=== PATIENT | female | born 1990 | race Caucasian/White ===

== ENCOUNTER 2016-04-22 14:32 | Emergency (ER) | payer OTHER ==
--- NOTE | 2016-04-22 15:35 | PD ---
HPI Chief Complaint Bilateral pedal edema Date Seen: Apr 22, 2016 Time Seen: 15:30 Travel History International Travel<30 Days: No Contact w/Intl Traveler<30Days: No Known Affected Area: No History of Present Illness HPI 26-year-old white female who is at 34 weeks gestation presents with bilateral pedal edema since this morning. Denies leg pain or calf pain. She has had 1 previous with an ectopic. Denies visual changes blurring. Para: 0 : 2 History Past Medical History Medical History: Denies Significant Hx Past Surgical History Narrative Surgical Left salpingectomy from ectopic Family History Family History: Negative Social History Alcohol Use: No Tobacco Use: No Substance Abuse: No Review of Systems Except as stated in HPI: all other systems reviewed are Neg Physical Exam Blood pressure 116/72 Respirations 16 Pulse 72 Narrative GENERAL: Well-nourished, well-developed patient. SKIN: Warm and dry. HEAD: Normocephalic and atraumatic. EYES: No scleral icterus. No injection or drainage. ENT: No nasal drainage noted. Mucous membranes pink. Airway patent. NECK: Supple, trachea midline. No JVD. CARDIOVASCULAR: Regular rate and rhythm without murmurs, gallops, or rubs. RESPIRATORY: Breath sounds equal bilaterally. No accessory muscle use. BREASTS: Bilateral exam showed no masses , no retractions, no nipple discharge. ABDOMEN/GI: Abdomen soft, non-tender, bowel sounds present, no rebound, no guarding Gravid to [-34] weeks size Fundal Height: [-] GENITOURINARY: External Genitalia: intact and normal in appearance BUS glands: [Normal-] Cervix: - Dilatation: [-] Effacement: [-] Station: [-] Presentation: [-] Membranes: [intact or ruptured] Uterine Contractions: [None-] FHT's: Category: [1-] Baseline: 140 Reactive: Reactive Variability: Moderate Decels: Absent EXTREMITIES: 2+ bilateral lower extremity edema. No Homans sign BACK: Nontender without obvious deformity. No CVA tenderness. NEUROLOGICAL: Awake and alert. Motor and sensory grossly within normal limits. Five out of 5 muscle strength in all muscle groups. Normal speech. Data Data Vital Signs Reviewed: Yes MDM Plan Recommend lower extremity elevation. Consider compression hose. Follow-up with primary OB as scheduled Diagnosis Diagnosis: Primary Impression: Edema during in third trimester Additional Impression: 34 weeks gestation of Disposition: 01 DISCHARGE HOME Ange Villatoro MD Apr 22, 2016 15:35
== END 2016-04-22 15:52 | disposition home or self-care (01) ==
LOC: HOBED 14:32
DX: O12.03 Gestational edema, third trimester (principal); Z3A.34 34 weeks gestation of pregnancy
CPT/HCPCS: 99284

== ENCOUNTER 2016-05-31 18:01 | Inpatient (IN) | payer OTHER ==
[~2016-05-31] VITALS: Ht 175.3 cm; Wt 108.9 kg
[2016-05-31 18:30] VITALS: RESP 18; TEMP 98.6
--- NOTE | 2016-05-31 18:44 | HHI.HP ---
HPI Chief Complaint scheduled induction, past due Date Seen: May 31, 2016 Time Seen: 18:30 Travel History International Travel<30 Days: No Contact w/Intl Traveler<30Days: No Known Affected Area: No History of Present Illness HPI 26 yo with EDC 05/30/16 admit for scheduled labor induction due to past due. Pt c/o pelvic pressure but denies regular contractions, LOF, or VB. Good movement. has been uncomplicated, seeing me since 7 weeks with 13 total visits. Sono confirmed dates at 8 weeks. Pain 1/10 mild cramping low pelvis. Para: 0 : 2 Last Menstrual Period: Aug 24, 2015 Miscarriage: 0 (L ectopic 04/2015) : 0 History Past Medical History Medical History: Denies Significant Hx Obstetric History Obstetric History G1 = L ruptured ectopic s/p L salpingectomy (laparoscopic) at [facility] 04/2015 G2 = current, male, EDC 05/30/16 Past Surgical History Narrative Surgical laparoscopic left salpingectomy for ruptured ectopic 04/2015 Family History Family History: Negative Social History Alcohol Use: No Tobacco Use: No Substance Abuse: No Allergies-Medications (Allergen,Severity, Reaction): Coded Allergies: No Known Allergies (Unverified , 05/31/16) Review of Systems General / Constitutional: Weight Gain, No: Fever, Chills, Other Eyes: No: Diploplia, Blurred Vision, Visual changes, Pain, Photophobia HENT: No: Headaches, Vertigo, Lightheadedness Cardiovascular: No: Irregular Rhythm, Chest Pain or Discomfort, Palpitations, Tachycardia, Syncope, Varicosities, Edema, Cyanosis Respiratory: No: Cough, Short of Breath, Other Gastrointestinal: No: Nausea, Vomiting, Diarrhea Genitourinary: Pelvic Pain (pressure), No: Decreased Urinary Output, Oliguria Musculoskeletal: No: Limited ROM, Weakness, Cramping, Edema, Pain Skin: No Rash, No Itching, No Dryness, No Lumps, No Change in Pigmentation, No Change in Nails, No Alopecia, No Lesions Neurologic: No: Weakness, Dizziness, Syncope, Focal Abnormalities, Coordination Problem, Headache, Slurred Speech, Seizures Psychiatric: No: Depression, Suicidal Ideations, Homicidal Ideation Endocrine: No: Heat Intolerance, Cold Intolerance, Polydipsia, Polyuria, Other Physical Exam Narrative GENERAL: Well-nourished, well-developed patient. Puffy. SKIN: Warm and dry. HEAD: Normocephalic and atraumatic. EYES: No scleral icterus. No injection or drainage. ENT: No nasal drainage noted. Mucous membranes pink. Airway patent. NECK: Supple, trachea midline. No JVD. CARDIOVASCULAR: Regular rate and rhythm without murmurs, gallops, or rubs. RESPIRATORY: Breath sounds equal bilaterally. No accessory muscle use. BREASTS: deferred. ABDOMEN/GI: Abdomen soft, non-tender, bowel sounds present, no rebound, no guarding Gravid to [40] weeks size Fundal Height: [40] GENITOURINARY: SVE: /-3 Presentation: [vtx] Membranes: [intact] Uterine Contractions: [irritability] FHT's: Category: [I] Baseline: [130s] Decels: [n] EXTREMITIES: No cyanosis; +2 edema to ankles bilaterally. BACK: Nontender without obvious deformity. No CVA tenderness. NEUROLOGICAL: Awake and alert. Motor and sensory grossly within normal limits. Five out of 5 muscle strength in all muscle groups. Normal speech. Data Data Vital Signs Reviewed: Yes Assessment/Plan Problem List: (1) Labor and delivery indication for care or intervention (2) 40 weeks gestation of Assessment and Plan 26 yo at 40w1d admit for labor induction 1) IOL: r/b/a including risk of failure & risk of reviewed w/ pt, AQA, pt consents; will plan cervidil overnight then AROM/pitocin as needed 2) GBS neg 3) h/o L ruptured ectopic and salpingectomy 04/2015 - aware 4) Varicella non-immune: for PP eval 5) status: male, vertex, EFW 8.5# or more; both pt & were >9# at Discharge Planning routine for 2-3d Cristin Jama MD May 31, 2016 18:44
[2016-05-31] MEDS ORDERED: LIDOCAINE HCL 1% 50 ML VIAL I-DERMAL PRN (19:00)
[2016-05-31] MEDS ORDERED: LIDOCAINE HCL 1% 50 ML VIAL INFIL PRN (19:00)
[2016-05-31] MEDS ORDERED: LACTATED RINGER'S 1000 ML BOLUS IV PRN (19:00)
[2016-05-31] MEDS ORDERED: MINERAL OIL 10 ML VIAL TOPICAL PRN (19:00)
[2016-05-31] MEDS ORDERED: CITRIC ACID-SODIUM CITRATE LIQ 30 ML UDC PO SCH (19:00)
[2016-05-31] MEDS ORDERED: OXYTOCIN 30 UNITS 500ML PREMIX IV ONE (19:00)
[2016-05-31] MEDS ORDERED: ONDANSETRON HCL 4 MG/2 ML VIAL IV PRN (19:00)
[2016-05-31] MEDS ORDERED: SODIUM CHLORIDE FLUSH PRN IV FLUSH (19:00)
[2016-05-31] MEDS ORDERED: NS 500 ML BOLUS IV PRN (19:00)
[2016-05-31] MEDS ORDERED: NS 1000 ML OTHER PRN (19:00)
[2016-05-31] MEDS ORDERED: ZOLPIDEM TARTRATE 5 MG TAB PO PRN (19:00)
[2016-05-31] MEDS ORDERED: DINOPROSTONE 10 MG INSERT-LEAVE FOR 12 HOURS VAGINAL ONE (19:00)
[2016-05-31] MEDS ORDERED: NS 1000 ML IV PRN (19:00)
[2016-05-31] MEDS ORDERED: diphenhydrAMINE HCL 25 MG CAP PO PRN (19:00)
[2016-05-31 19:01] VITALS: BP 124/83; PULSE 90
[2016-05-31 19:15] VITALS: RESP 18
[2016-05-31 19:20] LABS: AUTOMATED NEUTROPHIL # 10.3 TH/MM3 (1.8-7.7); BASOPHIL % 0.3 % (0.0-2.0); EOSINOPHIL # 0.1 TH/MM3 (0-0.4); EOSINOPHIL % 0.7 % (0.0-4.0); HEMATOCRIT 37.4 % (35.0-46.0); HEMO FLAGS DIFF FINAL; LYMPH % 12.7 % (9.0-44.0); LYMPHOCYTE # 1.6 TH/MM3 (1.0-4.8); MEAN CELL VOLUME 83.9 FL (80.0-100.0); MEAN CORPUSCULAR HEMOGLOBIN 29.6 PG (27.0-34.0); MEAN CORPUSCULAR HGB CONC 35.3 % (32.0-36.0); MONO % 4.6 % (0.0-8.0); NEUT % 81.7 % (16.0-70.0); PLATELET COUNT 372 TH/MM3 (150-450); RED BLOOD COUNT 4.46 MIL/MM3 (4.00-5.30); RED CELL DISTRIBUTION WIDTH 14.4 % (11.6-17.2); WHITE BLOOD COUNT 12.6 TH/MM3 (4.0-11.0)
[2016-05-31 19:28] LABS: BACTERIA, URINE FEW /hpf; BLOOD, URINE NEG (NEG); COMMENT (UR) CULT NOT INDICATED; CULTURE IF INDICATED CULT NOT INDICATED; GLUCOSE,URINE NEG (NEG); KETONE, URINE 10 mg/dL (NEG); MUCUS URINE FEW /lpf (OCC); NITRITE,URINE NEG (NEG); SQUAMOUS EPITHELIAL CELL URINE 7 /hpf (0-5); URINE COLOR YELLOW (YELLW/STRAW)
[2016-05-31] MEDS: SODIUM CHLORIDE FLUSH BID IV FLUSH SCH (21:00)
[2016-05-31 23:45] VITALS: BP 126/79; PULSE 71
[2016-05-31 23:49] VITALS: RESP 18; TEMP 97.8
[2016-06-01] VITALS (46 sets, daily range): BP systolic 96–138; BP diastolic 53–97; PULSE 65–98; RESP 16–18; TEMP 97.7–98.1
--- NOTE | 2016-06-01 08:21 | PD.LABORPN ---
Subjective Subjective feeling mild irritability, no true contractions; comfortable, discomfort 2/10 Objective Vital Signs Vital Signs Date Time Temp Pulse Resp B/P Pulse Ox O2 Delivery O2 Flow Rate FiO2 06/01/16 07:59 94 129/80 06/01/16 07:58 88 129/93 06/01/16 07:57 98.1 18 06/01/16 07:30 18 06/01/16 07:16 97 116/74 06/01/16 03:16 97.9 18 06/01/16 03:15 71 135/89 Objective Pelvic Exam: Cervix: [mid] Dilatation: [2] Effacement: [70] Station: [-2] Presentation: [vtx] Membranes: [intact] Uterine Contractions: [mild irritability] FHT's: Category: [I] Baseline: [130s] Reactive: [y] Variability: [y] Decels: [n] Assessment/Plan Problem List: (1) Labor and delivery indication for care or intervention (2) 40 weeks gestation of Assessment and Plan 26 yo with IUP 40w2d admit for term IOL 1) IOL: s/p cervidil overnight, mild irritability on toco; shower & eat breakfast, based on contraction pattern after will plan cytotec PV or pitocin; Cat I tracing currently 2) GBS neg 3) status: male, vertex, Cat I tracing; suspect macrosomia Cristin Jama MD Jun 01, 2016 08:21
[2016-06-01] MEDS ORDERED: MISOPROSTOL 25 MCG SUPP VAGINAL ONE (08:30)
[2016-06-01] MEDS: SODIUM CHLORIDE FLUSH BID IV FLUSH SCH (09:00)
[2016-06-01] MEDS: LACTATED RINGER'S 1000 ML IV SCH ×2 (11:05→18:40)
[2016-06-01] MEDS ORDERED: OXYTOCIN 30 UNITS/NS 500ML PREMIX IV SCH (12:00)
--- NOTE | 2016-06-01 16:30 | PD.LABORPN ---
Subjective Subjective feeling slight increase in contraction pressure but still mild 2/10 Objective Vital Signs Vital Signs Date Time Temp Pulse Resp B/P Pulse Ox O2 Delivery O2 Flow Rate FiO2 06/01/16 15:58 85 123/83 06/01/16 15:58 16 06/01/16 15:14 81 128/89 06/01/16 15:13 82 134/97 06/01/16 15:11 97.9 18 06/01/16 13:36 83 122/81 06/01/16 13:35 18 06/01/16 13:15 18 06/01/16 12:39 81 16 132/86 06/01/16 11:56 80 115/81 06/01/16 11:56 16 06/01/16 10:12 97.7 16 06/01/16 10:10 88 127/75 Objective Pelvic Exam: Cervix: [mid] Dilatation: [3] Effacement: [70] Station: [-2] Presentation: [vtx] Membranes: [AROM'd clear this check] Uterine Contractions: [q2-3 min with pitocin at 3 jackie-units/min] FHT's: Category: [I] Baseline: [130s] Reactive: [y] Variability: [y] Decels: [n] Assessment/Plan Problem List: (1) Labor and delivery indication for care or intervention (2) 40 weeks gestation of Assessment and Plan 26 yo with IUP at 40w2d admit for post due labor induction 1) IOL: s/p cervidil overnight, pt lorenzo frequently but minimal cervical change from 1/70/-3 > 3/70/-2; able to AROM this check, clear fluid, IUPC placed , continue active mgmt 2) GBS neg 3) status: vtx, male, suspect macrosomia, EFW 9+ # Cristin Jama MD Jun 01, 2016 16:30
[2016-06-01] MEDS ORDERED: fentaNYL 2MCG-BUPIV 0.125% INJ 100 ML ONE (19:21)
[2016-06-01] MEDS ORDERED: NO SYSTEM NARCOTICS PRN (20:45)
[2016-06-01] MEDS ORDERED: ePHEDrine/NS 25 MG/5 ML SYR IV PRN (20:45)
[2016-06-01] MEDS ORDERED: DO NOT ADMINISTER ANTICOAGULANTS PRN (20:45)
[2016-06-01] MEDS ORDERED: fentaNYL 2MCG-BUPIV 0.125% 100 ML EPIDURAL SCH (20:45)
[2016-06-02] VITALS (9 sets, daily range): BP systolic 108–124; BP diastolic 64–96; PULSE 77–95; RESP 16–18; TEMP 97.5–98.4
--- NOTE | 2016-06-02 00:43 | PD.OB.DELI ---
Delivery Date: Jun 02, 2016 Anesthesia: Epidural Episiotomy: Midline Vaginal Delivery: Vacuum Presentation: Occiput anterior Nuchal Cord: None Delayed cord clamping (45 sec): Yes : Male, Single One Minute : 8 Five Minute : 9 Weight: 8#9oz Infant Care: Spontaneous crying, Responded to stimulation, Other (see nursery notes) Placenta: Spontaneous delivery, Intact, 3 vessel cord Laceration: Episiotomy (midline 2nd degree) Repair: Chromic running Additional Information EBL 200 mL poor maternal pushing effort/exhaustion after approximately 1.5 hours of pushing , vacuum applied at +2 station with 2 pulls, no pop offs, successful delivery Cristin Jama MD Jun 02, 2016 00:42
[2016-06-02] MEDS ORDERED: PERI8.6T PO (00:44)
[2016-06-02] MEDS ORDERED: IBUP-232 PO (00:44)
[2016-06-02] MEDS ORDERED: BENZOCAINE 20% TOPICAL SPRAY 60 ML CAN TOPICAL PRN (00:45)
[2016-06-02] MEDS ORDERED: SODIUM CHLORIDE 0.9% FLUSH 10 ML FLUSH IV FLUSH PRN (00:45)
[2016-06-02] MEDS ORDERED: ALUMINUM/MAGNESIUM/SIMETH 30 ML CUP PO PRN (00:45)
[2016-06-02] MEDS ORDERED: ZOLPIDEM TARTRATE 5 MG TAB PO PRN (00:45)
[2016-06-02] MEDS ORDERED: WITCH HAZEL 50%/GLYCERIN 12.5% 40 PAD JAR TOPICAL PRN (00:45)
[2016-06-02] MEDS ORDERED: oxyCODONE/ACETAMINOPHEN 5 MG/325 MG TAB PO PRN ×2 (00:45)
[2016-06-02] MEDS ORDERED: ONDANSETRON ODT 4 MG TAB PO PRN (00:45)
[2016-06-02] MEDS ORDERED: ACETAMINOPHEN 325 MG TAB PO PRN (00:45)
--- NOTE | 2016-06-02 00:45 | HHI.DCPOC ---
Discharge Care Plan Diagnosis: (1) (spontaneous vaginal delivery) Your Health Problems Are: Vaginal delivery Report Symptoms to Your Doctor -Temperate above 100.5 degrees -Redness, of incision or excessive or foul smelling drainage -Unusual pain or calf pain -Increased vaginal bleeding -Painful or difficulty urinating -Feelings of extreme sadness or anxiety after 2 weeks Goals to Promote Your Health * To prevent worsening of your condition and complications * To maintain your health at the optimal level Directions to Meet Your Goals Take your medications as prescribed Follow your dietary instruction Follow activity as directed Ensure plenty of rest for recovery Drink fluids for hydration Keep your appointments as scheduled Take your immunizations and boosters as scheduled If your symptoms worsen call your PCP, if no PCP go to Urgent Care Center or Emergency Room Smoking is Dangerous to Your Health. Avoid second hand smoke Call the 24-hour crisis hotline for domestic abuse at Cristin Jama MD Jun 02, 2016 00:45
[2016-06-02] MEDS: DOCUSATE SODIUM 50 MG/SENNA 8.6 MG TAB PO PRN (06:59)
[2016-06-02] MEDS: IBUPROFEN 600 MG TAB PO PRN ×2 (07:00→14:37)
--- NOTE | 2016-06-02 08:36 | HHI.OB ---
Subjective Post Operative Day: 0 Remarks doing well Objective Vitals/I&O Vital Signs Date Time Temp Pulse Resp B/P Pulse Ox O2 Delivery O2 Flow Rate FiO2 06/02/16 07:16 97.5 89 18 120/72 06/02/16 02:00 87 108/74 06/02/16 02:00 16 06/02/16 02:00 97.8 06/02/16 01:45 77 16 124/96 06/02/16 01:30 84 116/68 06/02/16 01:30 16 06/02/16 01:15 18 06/02/16 01:15 82 110/64 06/02/16 01:01 123/74 06/02/16 01:01 95 06/02/16 00:50 90 114/74 06/02/16 00:48 98.0 18 06/01/16 23:45 77 120/69 06/01/16 23:01 72 138/70 06/01/16 22:45 77 06/01/16 22:45 16 06/01/16 22:45 128/84 06/01/16 22:30 74 111/57 06/01/16 22:15 65 106/61 06/01/16 22:00 16 06/01/16 22:00 68 119/77 06/01/16 21:45 69 109/76 06/01/16 21:30 66 110/63 06/01/16 21:15 66 111/61 06/01/16 21:00 98.0 06/01/16 21:00 16 06/01/16 21:00 71 96/57 06/01/16 20:45 72 96/53 06/01/16 20:30 98 117/76 06/01/16 20:26 16 06/01/16 20:15 96 123/85 06/01/16 20:00 104/89 06/01/16 20:00 89 06/01/16 19:55 94 06/01/16 19:45 120/74 06/01/16 19:44 85 16 127/69 06/01/16 19:40 97 130/84 06/01/16 19:30 91 134/94 06/01/16 19:25 117/78 06/01/16 19:25 89 06/01/16 19:11 81 117/89 06/01/16 19:07 97.9 16 06/01/16 19:00 91 134/91 06/01/16 18:39 16 06/01/16 18:35 73 134/73 06/01/16 16:59 80 135/78 06/01/16 16:58 16 06/01/16 15:58 85 123/83 06/01/16 15:58 16 06/01/16 15:14 81 128/89 06/01/16 15:13 82 134/97 06/01/16 15:11 97.9 18 06/01/16 13:36 83 122/81 06/01/16 13:35 18 06/01/16 13:15 18 06/01/16 12:39 81 16 132/86 06/01/16 11:56 80 115/81 06/01/16 11:56 16 06/01/16 10:12 97.7 16 06/01/16 10:10 88 127/75 Result Diagram: 05/31/161829 Objective Remarks GENERAL: Well-nourished, well-developed patient. CARDIOVASCULAR: Regular rate and rhythm without murmurs, gallops, or rubs. RESPIRATORY: Breath sounds equal bilaterally. No accessory muscle use. ABDOMEN/GI: Abdomen soft, non-tender, bowel sounds present. Incision: Clean, dry and intact. Fundus: Firm, non-tender at umbilicus. GENITOURINARY: Light to moderate bleeding. EXTREMITIES: No cyanosis or edema, non-tender, without signs of DVT. Medications and IVs Current Medications Medications (Trade) Dose Ordered Sig/[facility] Route Start Time Stop Time Status Last Admin (Muri-Lube Oil) 10 ml UNSCH PRN TOPICAL 05/31/16 19:00 (NS Flush) 2 ml BID IV FLUSH 06/02/16 00:45 (NS Flush) 2 ml UNSCH PRN IV FLUSH 06/02/16 00:45 (Tylenol) 650 mg Q4H PRN PO 06/02/16 00:45 (Motrin) 600 mg Q6H PRN PO 06/02/16 00:45 06/02/16 07:00 (Percocet 5-325 Mg) 1 tab Q4H PRN PO 06/02/16 00:45 (Percocet 5-325 Mg) 2 tab Q4H PRN PO 06/02/16 00:45 (Americaine 20% Top Spr) 1 spray Q4H PRN TOPICAL 06/02/16 00:45 06/02/16 06:59 (Tucks Pads) 1 applic QID PRN TOPICAL 06/02/16 00:45 06/02/16 06:59 (Margaret-Colace) 2 tab Q12H PRN PO 06/02/16 00:45 06/02/16 06:59 (Ambien) 5 mg HS PRN PO 06/02/16 00:45 (M-M-R Ii Inj) 0.5 ml ONCE ONCE SQ 06/02/16 16:00 06/02/16 16:01 (Boostrix Inj) 0.5 ml ONCE ONCE IM 06/02/16 16:00 06/02/16 16:01 (Mag-Al Plus Susp Liq) 15 ml Q8H PRN PO 06/02/16 00:45 (Zofran Odt) 4 mg Q6H PRN PO 06/02/16 00:45 Assessment/Plan Problem List: (1) Labor and delivery indication for care or intervention (2) 40 weeks gestation of Assessment and Plan 26 yo at 40w1d admit for labor induction 1) IOL: r/b/a including risk of failure & risk of reviewed w/ pt, AQA, pt consents; will plan cervidil overnight then AROM/pitocin as needed 2) GBS neg 3) h/o L ruptured ectopic and salpingectomy 04/2015 - aware 4) Varicella non-immune: for PP eval 5) status: male, vertex, EFW 8.5# or more; both pt & were >9# at Discharge Planning routine for 2-3d Evette Otoole MD Jun 02, 2016 08:36
[2016-06-02] MEDS: SODIUM CHLORIDE 0.9% FLUSH 10 ML FLUSH IV FLUSH SCH (08:54)
[2016-06-02] MEDS ORDERED: DIPHTH/TETANUS/ACEL PERTUSSIS (BOOSTER) 0.5 ML VIAL/PFS IM ONE (16:00)
[2016-06-02] MEDS ORDERED: MEASLES, MUMPS, RUBELLA VACCINE 0.5 ML VIAL SQ ONE (16:00)
[2016-06-03] MEDS: DOCUSATE SODIUM 50 MG/SENNA 8.6 MG TAB PO PRN (03:13)
[2016-06-03] MEDS: IBUPROFEN 600 MG TAB PO PRN ×2 (03:13→12:51)
[2016-06-03] MEDS: SODIUM CHLORIDE 0.9% FLUSH 10 ML FLUSH IV FLUSH SCH (03:33)
[2016-06-03 09:35] VITALS: BP 112/72; PULSE 70; RESP 18; TEMP 97.9
--- NOTE | 2016-06-03 12:05 | HHI.OB ---
Subjective Post Day: 1 Remarks PPD#1, Doing well, male with mild resp. issues Objective Vitals/I&O Vital Signs Date Time Temp Pulse Resp B/P Pulse Ox O2 Delivery O2 Flow Rate FiO2 06/03/16 09:35 97.9 06/03/16 09:35 70 18 112/72 06/03/16 04:13 18 06/03/16 04:13 18 06/02/16 20:50 119/82 06/02/16 20:50 98.4 83 18 Objective Remarks GENERAL: Well-nourished, well-developed patient. CARDIOVASCULAR: Regular rate and rhythm without murmurs, gallops, or rubs. RESPIRATORY: Breath sounds equal bilaterally. No accessory muscle use. ABDOMEN/GI: Abdomen soft, non-tender. Fundus: Firm, non-tender at umbilicus. GENITOURINARY: Light to moderate bleeding. EXTREMITIES: No cyanosis or edema, non-tender, without signs of DVT. Medications and IVs Current Medications Medications (Trade) Dose Ordered Sig/[facility]arad Route Start Time Stop Time Status Last Admin (Muri-Lube Oil) 10 ml UNSCH PRN TOPICAL 05/31/16 19:00 (NS Flush) 2 ml BID IV FLUSH 06/02/16 00:45 (NS Flush) 2 ml UNSCH PRN IV FLUSH 06/02/16 00:45 (Tylenol) 650 mg Q4H PRN PO 06/02/16 00:45 (Motrin) 600 mg Q6H PRN PO 06/02/16 00:45 06/03/16 03:13 (Percocet 5-325 Mg) 1 tab Q4H PRN PO 06/02/16 00:45 06/03/16 03:13 (Percocet 5-325 Mg) 2 tab Q4H PRN PO 06/02/16 00:45 (Americaine 20% Top Spr) 1 spray Q4H PRN TOPICAL 06/02/16 00:45 06/02/16 06:59 (Tucks Pads) 1 applic QID PRN TOPICAL 06/02/16 00:45 06/02/16 06:59 (Margaret-Colace) 2 tab Q12H PRN PO 06/02/16 00:45 06/03/16 03:13 (Ambien) 5 mg HS PRN PO 06/02/16 00:45 (Mag-Al Plus Susp Liq) 15 ml Q8H PRN PO 06/02/16 00:45 (Zofran Odt) 4 mg Q6H PRN PO 06/02/16 00:45 Assessment/Plan Problem List: (1) Labor and delivery indication for care or intervention (2) 40 weeks gestation of Assessment and Plan PPD#1, stable,infant stable but may go to NICU if respiratory issues dont resolve. Discharge Planning routine for Attending Attestation seen by Johan Fleming MD Jun 03, 2016 12:05
[2016-06-03 20:30] VITALS: BP 148/94; PULSE 84; RESP 17; TEMP 98.2
[2016-06-04] MEDS: IBUPROFEN 600 MG TAB PO PRN (02:36)
[2016-06-04 08:00] VITALS: BP 123/83; PULSE 80; RESP 18; TEMP 98.6
--- NOTE | 2016-06-04 08:35 | HHI.OB ---
Subjective Post Day: 2 Remarks no complaints, baby still not cleared by peds for discharge Objective Vitals/I&O Vital Signs Date Time Temp Pulse Resp B/P Pulse Ox O2 Delivery O2 Flow Rate FiO2 06/04/16 08:00 98.6 80 18 123/83 06/03/16 20:30 148/94 06/03/16 20:30 98.2 84 17 06/03/16 09:35 97.9 06/03/16 09:35 70 18 112/72 Objective Remarks GENERAL: Well-nourished, well-developed patient. CARDIOVASCULAR: Regular rate and rhythm without murmurs, gallops, or rubs. RESPIRATORY: Breath sounds equal bilaterally. No accessory muscle use. ABDOMEN/GI: Abdomen soft, non-tender. Fundus: Firm, non-tender at umbilicus. GENITOURINARY: Light to moderate bleeding. EXTREMITIES: No cyanosis or edema, non-tender, without signs of DVT. Medications and IVs Current Medications Medications (Trade) Dose Ordered Sig/[facility] Route Start Time Stop Time Status Last Admin (Muri-Lube Oil) 10 ml UNSCH PRN TOPICAL 05/31/16 19:00 (NS Flush) 2 ml BID IV FLUSH 06/02/16 00:45 (NS Flush) 2 ml UNSCH PRN IV FLUSH 06/02/16 00:45 (Tylenol) 650 mg Q4H PRN PO 06/02/16 00:45 (Motrin) 600 mg Q6H PRN PO 06/02/16 00:45 06/04/16 02:36 (Percocet 5-325 Mg) 1 tab Q4H PRN PO 06/02/16 00:45 06/03/16 03:13 (Percocet 5-325 Mg) 2 tab Q4H PRN PO 06/02/16 00:45 (Americaine 20% Top Spr) 1 spray Q4H PRN TOPICAL 06/02/16 00:45 06/02/16 06:59 (Tucks Pads) 1 applic QID PRN TOPICAL 06/02/16 00:45 06/02/16 06:59 (Margaret-Colace) 2 tab Q12H PRN PO 06/02/16 00:45 06/03/16 03:13 (Ambien) 5 mg HS PRN PO 06/02/16 00:45 (Mag-Al Plus Susp Liq) 15 ml Q8H PRN PO 06/02/16 00:45 (Zofran Odt) 4 mg Q6H PRN PO 06/02/16 00:45 Assessment/Plan Problem List: (1) Labor and delivery indication for care or intervention (2) 40 weeks gestation of Assessment and Plan PPD#2, stable, stable but may stay in peds if respiratory issues dont resolve. Discharge Planning routine for Attending Attestation pt seen by Kiana Gonzalez MD Jun 04, 2016 08:35
== END 2016-06-04 16:13 | disposition home or self-care (01) | DRG 775 ==
LOC: H2EB 18:01 → H2EA 06-01 08:46 → H1EA 06-02 03:12
PROVIDERS: ADMIT Obstetrics & Gynecology; ATTEND Obstetrics & Gynecology
PROC: 3E0P7GC Introduction of Other Therapeutic Substance into Female Reproductive, Via Natural or Artificial Opening (ICD-10-PCS; 2016-05-31)
PROC: 10907ZC Drainage of Amniotic Fluid, Therapeutic from Products of Conception, Via Natural or Artificial Opening (ICD-10-PCS; 2016-06-01)
PROC: 3E033VJ Introduction of Other Hormone into Peripheral Vein, Percutaneous Approach (ICD-10-PCS; 2016-06-01)
PROC: 10H07YZ Insertion of Other Device into Products of Conception, Via Natural or Artificial Opening (ICD-10-PCS; 2016-06-01)
PROC: 3E0S3CZ (ICD-10-PCS; 2016-06-01)
PROC: 00HU33Z Insertion of Infusion Device into Spinal Canal, Percutaneous Approach (ICD-10-PCS; 2016-06-01)
PROC: 10D07Z6 Extraction of Products of Conception, Vacuum, Via Natural or Artificial Opening (ICD-10-PCS; principal; 2016-06-02)
PROC: 0KQM0ZZ Repair Perineum Muscle, Open Approach (ICD-10-PCS; 2016-06-02)
PROC: 0W8NXZZ Division of Female Perineum, External Approach (ICD-10-PCS; 2016-06-02)
DX: O48.0 Post-term pregnancy (principal); O70.1 Second degree perineal laceration during delivery; O75.81 Maternal exhaustion complicating labor and delivery; Z3A.40 40 weeks gestation of pregnancy; Z37.0 Single live birth
CPT/HCPCS: 81001; 85025; 86900; 86901; 90715; J2590; J3010; J7120